=== PATIENT | male | born 1950 | race Caucasian/White ===

== ENCOUNTER 2022-07-31 07:54 | Day surgery (SDC) | payer BC ==
[2022-07-30 15:14] VITALS: BMI 27.8
[2022-07-31 09:55] VITALS: RESP 16; TEMP 98.1
[2022-07-31 09:58] VITALS: BP 117/67; PULSE 74
== END 2022-07-31 09:45 | disposition home or self-care (01) ==
LOC: FASU-ENDO 07:54
PROVIDERS: ATTEND Internal Medicine Gastroenterology
PROC: 0DJD8ZZ Inspection of Lower Intestinal Tract, Via Natural or Artificial Opening Endoscopic (ICD-10-PCS; principal; 2022-07-31 09:02)
DX: Z12.11 Encounter for screening for malignant neoplasm of colon (principal); Z86.010 Personal history of colon polyps; Z80.0 Family history of malignant neoplasm of digestive organs